=== PATIENT | male | born 1980 | race Caucasian/White ===

== ENCOUNTER 2019-05-24 04:54 | Day surgery (SDC) | payer OTHER ==
[2019-05-23 11:04] VITALS: BMI 24.7
--- NOTE | 2019-05-24 11:02 | HP ---
[facility] - Chief Complaint Chief Complaint: right shoulder pain History of Present Illness: right shoulder pain History Source: Patient Limitations to Obtaining History: No Limitations - Past Medical History Allergies/Adverse Reactions: Allergies Allergy/AdvReac Type Severity Reaction Status Date / Time No Known Allergies Allergy Verified 05/23/19 11:09 - Current Medications Current Medications: Home Medications Medication Instructions Recorded NK [No Known Home Medication] 05/23/19 Satellite Physical Exam - Physical Examination Vital Signs: Vital Signs Period Temp Pulse Resp BP Sys/Qureshi Pulse Ox Last 24 Hr 98.4 F 70 16 135/84 99 General Appearance: Well Nourished ENT: Clear Lung: Clear to auscultation Heart: Regular rate & rhythm Breasts: Soft Abdomen: Soft Extremities: No edema Satellite Impression/Plan - Impression/Plan Impression: right shoulder impingement syndrome, partial RTC tear Operative Procedure: right shoulder arthroscopy, subacromial decompression Date to be Performed: 05/24/19
[2019-05-24] MEDS ORDERED: MIDAZOLAM HCL 2 MG/2 ML SINGLE DOSE VIAL ONE ×2 (13:07)
[2019-05-24] MEDS ORDERED: PROPOFOL 20 ML ONE (13:21)
[2019-05-24] MEDS ORDERED: oxyCODONE HCL 5 MG TABLET PO PRN ×2 (13:46)
[2019-05-24] MEDS ORDERED: ONDANSETRON 4 MG/2 ML VIAL IVPUSH PRN (13:46)
[2019-05-24] MEDS ORDERED: ceFAZolin SODIUM 1 GM VIAL ONE (13:49)
[2019-05-24] MEDS ORDERED: ceFAZolin 2 GRAM PREMIX BAG IVPB ONE (13:49)
[2019-05-24] MEDS ORDERED: LACTATED RINGERS SOLUTION 1,000 ML IV SCH (14:00)
--- NOTE | 2019-05-24 15:18 | OP ---
Operative Note - Note: Operative Date: 05/24/19 Pre-Operative Diagnosis: right shoulder impingement syndrome, possible labral tear Operation: right shoulder arthroscopy, subacromial decompression, distal clavicle excision Post-Operative Diagnosis: Same as Pre-op Surgeon: Jovon Cummings Anesthesiologist/CONTACT LENS BLOCKER AND CUTTER: Toño Montero Anesthesia: General, Local Specimens Removed: shavings Estimated Blood Loss (mls): 30 Drains, Volume Out (mls): 0 Blood Volume Replaced (mls): 0 Fluid Volume Replaced (mls): 700 Operative Report Dictated: Yes
[2019-05-24] MEDS ORDERED: LABETALOL HCL 5 MG/1 ML (100MG/20 ML VIAL) IVPUSH ONE ×2 (15:50→16:33)
[2019-05-24] MEDS ORDERED: hydrALAZINE HCL 20 MG/ML VIAL IVPUSH ONE (16:34)
[2019-05-24] MEDS ORDERED: hydrALAZINE HCL 20 MG/ML VIAL ONE (16:49)
[2019-05-24] MEDS ORDERED: ONDANSETRON 4 MG/2 ML VIAL ONE (17:26)
[2019-05-24 19:35] VITALS: BP 136/71; PULSE 82; TEMP 97.9
--- NOTE | 2019-05-25 11:18 | OP ---
DATE OF OPERATION: 05/24/2019 PREOPERATIVE DIAGNOSES: Right shoulder impingement syndrome, acromioclavicular joint arthritis and possible labral tear. POSTOPERATIVE DIAGNOSES: Right shoulder impingement syndrome and acromioclavicular joint arthritis. PROCEDURE: Right shoulder arthroscopy, subacromial decompression, distal clavicle excision. DRAINS: None. COMPLICATIONS: None. SPECIMEN: Arthroscopic shavings. BLOOD LOSS: None. BLOOD GIVEN: None. FLUID REPLACEMENT: 700 mL. INDICATION: This patient is a 38-year-old with a preoperative diagnosis of 15 years of right shoulder pain, he has right shoulder impingement syndrome, AC joint arthritis and a possible posterior labral tear. After understanding the potential risks, complications, alternatives and benefits of surgery versus nonsurgical treatment the patient elected to undergo this procedure. DESCRIPTION OF PROCEDURE: Patient was brought to the operating room, peripheral IV placed and IV sedation given. Right interscalene block was performed. He was placed in the beach-chair position with ample padding throughout. LMA anesthesia was induced. The right upper extremity was prepped and draped in a sterile fashion. I did a manipulation under anesthesia, but it was quite loose. The bony landmarks were marked out with a marking pen. A posterior portal was established with a No. 15 scalpel blade and a diagnostic glenohumeral arthroscopy was performed. There was definite synovitis and fraying of the labrum. Therefore, an anterior portal was established with a spinal needle. Then under direct visualization using a No. 15 scalpel blade and a green cannula the straight shaver was introduced into the glenohumeral joint. I debrided the anterior synovitis, did a partial synovectomy and debrided the posterior labrum. Once this was done the glenohumeral joint looked good. The humeral head and the glenoid both looked good. I put the arm through a full range of motion. There was no loose body. A probe was used to probe the labrum and test its stability and it was seen to be quite stable throughout. Patient did have a large synovial recess underneath the insertion of the biceps and as I went a little bit more posteriorly. However, there was no instability and I felt the labrum looked good. Next our attention turned to the subacromial space inflammatory bursitis. A lateral portal was established under direct visualization. A significant extensive debridement/soft tissue bursectomy was performed revealing an extremely large subacromial spur and a moderate-sized distal clavicular spur. Both of these were taken down with a 5.5-mm oval bur, fine tuned in reverse and then with a straight shaver. Put the arm through a full range of motion. There were no points of impingement. Photographs were taken. The AC joint looked good. The distal clavicle and distal subacromial space looked good. The top surface of the rotator cuff was directly visualized putting the arm through a full range of motion and there was no evidence of rotator cuff pathology. The area was copiously irrigated and washed out. All instrumentation and excess saline were removed. The arthroscopy portals were closed with 3-0 nylon sutures. Aquacel dressing was used to cover the wounds. Patient's arm was put into a sling. Total operative time was about 50 minutes. There were no complications during the case. Patient tolerated the procedure quite well and was brought to the ambulatory recovery room in stable condition. CODY HECK M.D. [id number]
--- NOTE | 2019-05-26 11:55 | PATH ---
Surgical Pathology Report Patient Name: COOPER GALLOWAY [facility]. Rec. #: [id number] /Age/Gender: 1980 (Age: 38) / M Account: [id number] Location: [facility] SURGICAL Taken: 05/24/2019 Received: 05/25/2019 Reported: 05/26/2019 Physicians: Jovon Cummings M.D. Specimen(s) Received RIGHT SHOULDER SHAVINGS Clinical History Tear right shoulder Final Diagnosis RIGHT SHOULDER, ARTHROSCOPIC SHAVING: PORTIONS OF SYNOVIUM, CARTILAGE, SKELETAL MUSCLE AND BONE CONSISTENT WITH ARTHROSCOPIC SHAVINGS. Electronically Signed Evens Ortega M.D. Gross Description Received in formalin, labeled "right shoulder shavings," is a 5.0 x 4.3 x 0.5 cm. aggregate of sauceda-yellow soft tissue fragments. A videotape sales representative portion is submitted in one cassette. DL/05/25/2019 saudi05/25/2019
== END 2019-05-24 19:10 | disposition home or self-care (01) ==
LOC: JASU-SURG 04:54
PROVIDERS: ATTEND Orthopaedic Surgery
PROC: 0PB94ZZ Excision of Right Clavicle, Percutaneous Endoscopic Approach (ICD-10-PCS; 2019-05-24)
PROC: 0RNJ4ZZ Release Right Shoulder Joint, Percutaneous Endoscopic Approach (ICD-10-PCS; principal; 2019-05-24 12:00)
DX: M75.41 Impingement syndrome of right shoulder (principal); M19.011 Primary osteoarthritis, right shoulder
CPT/HCPCS: 88304-TC; 94760

== ENCOUNTER 2021-11-18 04:26 | Day surgery (SDC) | payer OTHER ==
[2021-11-17 13:34] VITALS: BMI 25.5
[2021-11-18] MEDS ORDERED: MIDAZOLAM HCL 2 MG/2 ML SINGLE DOSE VIAL ONE (16:51)
[2021-11-18 17:44] VITALS: TEMP 97.5
[2021-11-18 18:08] VITALS: BP 131/77; PULSE 80
== END 2021-11-18 18:00 | disposition home or self-care (01) ==
LOC: JASU-SURG 04:26
PROVIDERS: ATTEND Urology
PROC: 0TF3XZZ Fragmentation in Right Kidney Pelvis, External Approach (ICD-10-PCS; principal; 2021-11-18 16:30)
DX: N20.0 Calculus of kidney (principal)

== ENCOUNTER 2022-04-06 04:24 | Day surgery (SDC) | payer OTHER ==
[2022-04-01 12:12] VITALS: BMI 26.3
[2022-04-06 13:57] VITALS: RESP 18
[2022-04-06] MEDS ORDERED: ONDANSETRON 4 MG/2 ML VIAL ONE (15:57)
[2022-04-06] MEDS ORDERED: MIDAZOLAM HCL 2 MG/2 ML SINGLE DOSE VIAL ONE (16:37)
[2022-04-06] MEDS ORDERED: FENTANYL CITRATE/PF 50 MCG/ML VIAL ONE (16:37)
[2022-04-06] MEDS ORDERED: PROPOFOL 20 ML ONE (16:56)
[2022-04-06 18:55] VITALS: BP 166/101; PULSE 51; TEMP 97
== END 2022-04-06 18:55 | disposition home or self-care (01) ==
LOC: JASU-SURG 04:24
PROVIDERS: ATTEND Urology
PROC: 0TF4XZZ Fragmentation in Left Kidney Pelvis, External Approach (ICD-10-PCS; principal; 2022-04-06 15:30)
DX: N20.0 Calculus of kidney (principal)